=== PATIENT | female | born 1935 | race Caucasian/White ===

== ENCOUNTER 2019-04-16 13:01 | Observation (INO) | payer MEDICARE, OTHER ==
[~2019-04-16] VITALS: Ht 165.1 cm; Wt 86.2 kg
[~2019-04-16 13:01] MED LIST: ASPI81CH PO; ATEN25 PO; ATOR20 PO; CLOP75 PO; CODLIVC PO; DIPATR PO; FENO145 PO; HYDACE5325 PO; Hair, Skin & N1 EACH PO; METF500 PO; RALO60 PO; TRAZ50 PO; Zofran Odt8 MG SL
[2019-04-16] MEDS ORDERED: METF500 PO (13:08)
[2019-04-16 13:59] LABS: BASOPHILS ABSOLUTE AUTO 0.07 K/mm3 (0.00-0.23); BASOPHILS PERCENT AUTO 1 % (0-2); EOSINOPHILS ABSOLUTE AUTO 0.41 K/mm3 (0.00-0.68); EOSINOPHILS PERCENT AUTO 5 % (0-6); Hematocrit 46.1 % (33.0-51.0); Hemoglobin 15.1 g/dL (11.5-16.0); IMMATURE GRAN ABSOLUTE AUTO 0.02 K/mm3 (0.00-0.10); IMMATURE GRAN PERCENT AUTO 0 % (0-1); LYMPHOCYTES ABSOLUTE AUTO 1.67 K/mm3 (0.84-5.20); LYMPHOCYTES PERCENT AUTO 20 % (21-46); MONOCYTES ABSOLUTE AUTO 0.78 K/mm3 (0.16-1.47); MONOCYTES PERCENT AUTO 9 % (4-13); Mean Corpuscular HGB 28.4 pg (26.0-34.0); Mean Corpuscular HGB Conc 32.8 g/dL (31.5-36.5); Mean Corpuscular Volume 87 fL (80-100); Mean Platelet Volume 11.3 fL (9.1-12.4); NEUTROPHILS ABSOLUTE AUTO 5.46 K/mm3 (1.96-9.15); NEUTROPHILS PERCENT AUTO 65 % (41-73); Platelet Count 209 K/mm3 (150-400); RDW Coefficient Variation 14.1 % (11.7-14.2); RDW Standard Deviation 44.6 fL (35.1-46.3); Red Blood Cell Count 5.31 M/mm3 (3.80-5.20); White Blood Cell Count 8.41 K/mm3 (4.00-11.30)
[2019-04-16 14:11] LABS: Source, Urine Clean Catch
[2019-04-16 14:16] LABS: Alanine Aminotransfer (ALT/SGP 32 U/L (12-78); Albumin, Blood 3.7 g/dL (3.4-5.0); Alk Phos 78 U/L (50-136); Anion Gap 5 mmol/L (6-16); Aspartate Aminotrans (AST/SGOT 24 U/L (12-37); Bilirubin, Total 0.4 mg/dL (0.1-1.0); Blood Urea Nitrogen 35 mg/dL (8-24); Bun/Creatinine Ratio 33.3 (12.0-20.0); CO2, Blood 25 mmol/L (21-32); Calcium, Blood 9.6 mg/dL (8.5-10.1); Chloride, Blood 111 mmol/L (98-108); Creatinine, Blood 1.05 mg/dL (0.40-1.00); Globulin, Blood 3.7 g/dL (2.2-4.0); Glomerular Filtration Rate 53 (60-); Glucose, Blood 78 mg/dL (70-99); Potassium, Blood 4.9 mmol/L (3.5-5.5); Sodium, Blood 141 mmol/L (136-145); Total Protein, Blood 7.4 g/dL (6.4-8.2); Troponin I <0.015 ng/mL (0.000-0.040)
[2019-04-16 14:18] LABS: Bilirubin, Urine Neg (Neg); Blood, Urine Neg (Neg); Glucose Qualitative, Urine Neg (Neg); Ketones, Urine Neg (Neg); Leukocyte Esterase, Urine 1+ (Neg); Nitrite, Urine Neg (Neg); Protein, Urine Neg (Neg); Specific Gravity, Urine 1.015 (1.003-1.022); Urobilinogen, Urine NORM (Normal)
[2019-04-16 14:30] LABS: Appearance, Urine Clear (Clear); Color, Urine Yellow (P-Yellow)
[2019-04-16 14:31] LABS: Bacteria Few /hpf; Red Blood Cells, Urine Not Seen /hpf (0-2); Squamous Epithelial Cells Few /hpf (Few)
[2019-04-16] MEDS ORDERED: Glucotrol10 MG PO (15:16)
[2019-04-16] MEDS ORDERED: CELECOXIB200 MG PO (15:16)
[2019-04-17 05:07] LABS: Hemoglobin 13.9 g/dL (11.5-16.0); Mean Corpuscular HGB Conc 32.3 g/dL (31.5-36.5); Mean Corpuscular Volume 87 fL (80-100); Mean Platelet Volume 11.2 fL (9.1-12.4); Platelet Count 181 K/mm3 (150-400); RDW Coefficient Variation 13.9 % (11.7-14.2); RDW Standard Deviation 43.8 fL (35.1-46.3); Red Blood Cell Count 4.96 M/mm3 (3.80-5.20); White Blood Cell Count 6.94 K/mm3 (4.00-11.30)
[2019-04-17 05:36] LABS: Anion Gap 7 mmol/L (6-16); Blood Urea Nitrogen 30 mg/dL (8-24); Bun/Creatinine Ratio 32.4 (12.0-20.0); CO2, Blood 25 mmol/L (21-32); Chloride, Blood 113 mmol/L (98-108); Creatinine, Blood 0.93 mg/dL (0.40-1.00); Glomerular Filtration Rate >60 (60-); Glucose, Blood 117 mg/dL (70-99); Potassium, Blood 4.3 mmol/L (3.5-5.5); Sodium, Blood 145 mmol/L (136-145)
--- NOTE | 2019-04-17 06:01 | NUR ---
WRITER PRODUCER SUMMARY PT A/O X4. PT STATED HER EYES WERE DRY AT THE BEGINNING OF THE SHIFT AND WANTED ARTIFICAL TEARS. ARTIFICAL TEARS WERE PRECRIBED AND LEFT AT BEDSIDE PER MD ORDERS FOR PT'S COMFORT. PT SLEPT WELL THROUGHOUT THE NIGHT. GOT UP A FEW TIMES TO USE THE BATHROOM WITH STANDBY ASSIST. HR IN THE HIGHER 50'S AND 60'S. PT DENIES ANY PAIN AND NAUSEA. WAS COOPERATIVE AND FOLLOWED COMMANDS. VSS AND WILL CONTINTUE TO MONITOR.
--- NOTE | 2019-04-17 09:33 | NUR ---
Spiritual care visit conducted. Patient is sitting on EOB and ready to go home. I provide pastoral halfway house counselor and prayer patient responds well and voices appreciation for the visit.
[2019-04-17] MEDS ORDERED: METO25ER PO (10:13)
[2019-04-17] MEDS ORDERED: XARELTO20 MG PO (10:14)
--- NOTE | 2019-04-17 10:37 | NUR ---
PATIENT D/C'D TO HOME WITH HER SISTER. [facility] TO CALL WITH FOLLOW UP APPT. RX MEDICATION FAXED TO [facility]. VSS THIS AM, PATIENT WAS IN A-FIB AT 62. D/C INSTRUCTIONS AND EDUCATION DISCUSSED WITH PATIENT AND COPY PROVIDED. PATIENT DENIES ANY FURTHER QUESTIONS OR CONCERNS.
== END 2019-04-17 10:42 | disposition home or self-care (01) ==
LOC: ER 13:01 → MEDS 13:02
PROVIDERS: Emergency Medicine; ADMIT Internal Medicine
DX: I48.91 Unspecified atrial fibrillation (principal); N17.9 Acute kidney failure, unspecified; I10 Essential (primary) hypertension; E11.9 Type 2 diabetes mellitus without complications; I25.10 Atherosclerotic heart disease of native coronary artery without angina pectoris; M19.90 Unspecified osteoarthritis, unspecified site; Z74.09 Other reduced mobility; Z86.73 Personal history of transient ischemic attack (TIA), and cerebral infarction without residual deficits; Z91.018 Allergy to other foods; Z88.8 Allergy status to other drugs, medicaments and biological substances; Z79.899 Other long term (current) drug therapy; Z79.84 Long term (current) use of oral hypoglycemic drugs; Z95.5 Presence of coronary angioplasty implant and graft
CPT/HCPCS: 36415; 71046; 76770; 80048; 80053; 81001; 82947; 83880; 84484; 85025; 85027; 87086; 93005; 93010; 93306; 96360; 96361; 99285-25; G0378; J7030

== ENCOUNTER → 2019-09-25 | Outpatient (CLI) | payer MEDICARE, OTHER ==
[~2019-09-25] MED LIST changes: +CELECOXIB200 MG PO; +Glucotrol10 MG PO; +METO25ER PO; +XARELTO20 MG PO
[2019-09-25 17:11] LABS: Microalb/Creat Ratio UR, Rand 27.759 mg/g (0.000-30.000); Microalbumin, Random Urine 32.2 mg/L (0.000-20.000)
== END | disposition home or self-care (01) ==
LOC: LAB 15:30 → LAB SHORT 15:30 → LAB FUT 08-25 08:00
PROVIDERS: Physician Assistant
DX: N18.9 Chronic kidney disease, unspecified (principal)
CPT/HCPCS: 82043; 82570

== ENCOUNTER 2022-09-19 11:04 | Day surgery (SDC) | payer MEDICARE, OTHER ==
[~2022-09-19] VITALS: Ht 152.4 cm; Wt 94.0 kg
[~2022-09-19 11:04] MED LIST changes: +ATENOLOL25 MG PO; +DICLOFENAC SOD100 G1 TOP; +GLIP2.5ER PO; +HYDR1TAB94 PO; +OXYB5 PO; +RYBELSUS3 MG PO; +SOLI5 PO; +XARELTO15 M1 PO
--- NOTE | 2022-09-19 15:44 | NUR ---
PT DRESSED, SITTING IN WC, SON CALLED AND IS ON HIS WAY IN, IV DC'D TIP INTACT, VSS, WILL DC SHORTLY BY WC. DR JIMENEZ IN TO DISCUSS PLAN OF CARE
--- NOTE | 2022-09-19 16:30 | NUR ---
LE - 1610, PT DC'D BY CAL[facility], SON DRIVING PT HOME
== END 2022-09-19 22:41 | disposition home or self-care (01) ==
LOC: MHTC 11:04
DX: E11.51 Type 2 diabetes mellitus with diabetic peripheral angiopathy without gangrene (principal); I70.222 Atherosclerosis of native arteries of extremities with rest pain, left leg; L97.521 Non-pressure chronic ulcer of other part of left foot limited to breakdown of skin; Z79.84 Long term (current) use of oral hypoglycemic drugs; Z79.01 Long term (current) use of anticoagulants
CPT/HCPCS: 36140; 37224; 37228; 37232; 75625; 75716; 75774; 76937; 99152; 99153; C1725; C1760; C1769; C1887; C1894; J1644; J2250; J3010; J7030; J7040; J7050; Q9967

== ENCOUNTER → 2022-12-06 | Outpatient (CLI) | payer MEDICARE, OTHER | END | disposition home or self-care (01) | LOC: LAB SHORT 11:45 → LAB 11:45 | DX: R30.0 Dysuria (principal) | CPT/HCPCS: 87086; 87147 ==

== ENCOUNTER 2023-04-12 23:31 | Emergency (ER) | payer MEDICARE, OTHER ==
[~2023-04-12] VITALS: Ht 152.4 cm; Wt 90.7 kg
[~2023-04-12 23:31] MED LIST changes: -GLIP2.5ER PO; +GLIP5ER PO
[2023-04-13 01:00] LABS: BASOPHILS ABSOLUTE AUTO 0.06 K/mm3 (0.00-0.23); BASOPHILS PERCENT AUTO 1 % (0-2); EOSINOPHILS ABSOLUTE AUTO 0.07 K/mm3 (0.00-0.68); EOSINOPHILS PERCENT AUTO 1 % (0-6); Hematocrit 39.6 % (33.0-51.0); Hemoglobin 13.3 g/dL (11.5-16.0); IMMATURE GRAN ABSOLUTE AUTO 0.04 K/mm3 (0.00-0.10); IMMATURE GRAN PERCENT AUTO 1 % (0-1); LYMPHOCYTES ABSOLUTE AUTO 0.56 K/mm3 (0.84-5.20); LYMPHOCYTES PERCENT AUTO 7 % (21-46); MONOCYTES ABSOLUTE AUTO 1.14 K/mm3 (0.16-1.47); MONOCYTES PERCENT AUTO 14 % (4-13); Mean Corpuscular HGB 28.9 pg (26.0-34.0); Mean Corpuscular HGB Conc 33.6 g/dL (31.5-36.5); Mean Corpuscular Volume 86 fL (80-100); Mean Platelet Volume 10.4 fL (9.1-12.4); NEUTROPHILS ABSOLUTE AUTO 6.08 K/mm3 (1.96-9.15); NEUTROPHILS PERCENT AUTO 77 % (41-73); Platelet Count 180 K/mm3 (150-400); RDW Coefficient Variation 13.2 % (11.7-14.2); White Blood Cell Count 7.95 K/mm3 (4.00-11.30)
[2023-04-13 01:20] LABS: Albumin, Blood 3.3 g/dL (3.4-5.0); Albumin/Globulin Ratio 0.8 (0.8-1.8); Bilirubin, Total 0.6 mg/dL (0.1-1.0); Bun/Creatinine Ratio 25.2 (12.0-20.0); Calcium, Blood 8.8 mg/dL (8.5-10.1); Creatinine, Blood 0.91 mg/dL (0.40-1.00); Potassium, Blood 4.2 mmol/L (3.5-5.5); Total Protein, Blood 7.3 g/dL (6.4-8.2)
[2023-04-13 01:37] LABS: Influenza A, PCR NEGATIVE (NEGATIVE); Influenza B, PCR NEGATIVE (NEGATIVE); Resp Syncytial Virus, PCR NEGATIVE (NEGATIVE)
[2023-04-13 02:10] LABS: SARS-Cov-2 (COVID-19) PCR, MMC POSITIVE (NEGATIVE)
[2023-04-13 07:30] VITALS: BP 154/62
[2023-04-14] MEDS ORDERED: ESTRADIOL42.5 GM VAG (20:29)
[2023-04-14] MEDS ORDERED: TOLTERODINE TART2 MG PO (20:31)
== END 2023-04-13 07:58 | disposition home or self-care (01) ==
LOC: ER 23:31
PROVIDERS: Student in an Organized Health Care Education/Training Program
DX: U07.1 COVID-19 (principal); R51.9 Headache, unspecified; R05.9 Cough, unspecified; R11.10 Vomiting, unspecified; E11.9 Type 2 diabetes mellitus without complications; I10 Essential (primary) hypertension; Z86.73 Personal history of transient ischemic attack (TIA), and cerebral infarction without residual deficits; Z85.3 Personal history of malignant neoplasm of breast; Z95.5 Presence of coronary angioplasty implant and graft; Z88.8 Allergy status to other drugs, medicaments and biological substances; Z79.01 Long term (current) use of anticoagulants; Z79.899 Other long term (current) drug therapy; Z79.84 Long term (current) use of oral hypoglycemic drugs
CPT/HCPCS: 0241U; 71045; 80053; 83690; 85025; 93005; 93010; 96361; 96374; 99285-25; A9270; J0780; J7030

== ENCOUNTER 2023-04-13 19:49 | Inpatient (IN) | payer MEDICARE, OTHER ==
[~2023-04-13] VITALS: Ht 152.4 cm; Wt 90.7 kg
[2023-04-13 21:00] LABS: BASOPHILS ABSOLUTE AUTO 0.06 K/mm3 (0.00-0.23); BASOPHILS PERCENT AUTO 1 % (0-2); EOSINOPHILS ABSOLUTE AUTO 0.02 K/mm3 (0.00-0.68); EOSINOPHILS PERCENT AUTO 0 % (0-6); Hematocrit 40.4 % (33.0-51.0); Hemoglobin 13.4 g/dL (11.5-16.0); IMMATURE GRAN ABSOLUTE AUTO 0.04 K/mm3 (0.00-0.10); IMMATURE GRAN PERCENT AUTO 1 % (0-1); LYMPHOCYTES PERCENT AUTO 12 % (21-46); MONOCYTES ABSOLUTE AUTO 1.37 K/mm3 (0.16-1.47); MONOCYTES PERCENT AUTO 21 % (4-13); Mean Corpuscular HGB 28.9 pg (26.0-34.0); Mean Corpuscular HGB Conc 33.2 g/dL (31.5-36.5); Mean Corpuscular Volume 87 fL (80-100); Mean Platelet Volume 10.6 fL (9.1-12.4); NEUTROPHILS ABSOLUTE AUTO 4.27 K/mm3 (1.96-9.15); NEUTROPHILS PERCENT AUTO 65 % (41-73); Platelet Count 181 K/mm3 (150-400); RDW Coefficient Variation 13.4 % (11.7-14.2); RDW Standard Deviation 42.3 fL (35.1-46.3); Red Blood Cell Count 4.64 M/mm3 (3.80-5.20); White Blood Cell Count 6.56 K/mm3 (4.00-11.30)
[2023-04-13 21:12] LABS: Albumin, Blood 3.4 g/dL (3.4-5.0); Albumin/Globulin Ratio 0.8 (0.8-1.8); Bilirubin, Total 0.4 mg/dL (0.1-1.0); Creatinine, Blood 0.96 mg/dL (0.40-1.00); Potassium, Blood 4.2 mmol/L (3.5-5.5); Total Protein, Blood 7.4 g/dL (6.4-8.2)
[2023-04-13 23:37] LABS: Source, Urine Clean Catch
[2023-04-13 23:57] LABS: Bilirubin, Urine Neg (Neg); Blood, Urine 1+ (Neg); Glucose Qualitative, Urine Neg (Neg); Ketones, Urine 1+ (Neg); Leukocyte Esterase, Urine Neg (Neg); Nitrite, Urine Neg (Neg); Protein, Urine 2+ (Neg); Specific Gravity, Urine 1.015 (1.003-1.022); Urobilinogen, Urine NORM (Normal)
[2023-04-14 00:06] LABS: Appearance, Urine Clear (Clear); Color, Urine Yellow (P-Yellow)
[2023-04-14 00:37] LABS: Bacteria Few /hpf; Red Blood Cells, Urine 0-2 /hpf (0-2); Squamous Epithelial Cells Few /hpf (Few)
[2023-04-14 17:12] VITALS: BP 165/69
[2023-04-14 17:34] LABS: Adenovirus F 40/41 Not Detected (NOT DETECT); Astrovirus Not Detected (NOT DETECT); Campylobacter Sp Not Detected (NOT DETECT); Cryptosporidium Not Detected (NOT DETECT); Cyclospora Cayetanensis Not Detected (NOT DETECT); E. Coli O157 Not Detected (NOT DETECT); Entamoeba Histolytica Not Detected (NOT DETECT); Enteroaggregative E. coli-EAEC Not Detected (NOT DETECT); Enteropathogenic E. coli-EPEC Not Detected (NOT DETECT); Enterotoxigenic E. coli-ETEC Not Detected (NOT DETECT); Giardia Lamblia Not Detected (NOT DETECT); Norovirus GI/GII Not Detected (NOT DETECT); Plesiomonas Shigelloides Not Detected (NOT DETECT); Rotavirus A Not Detected (NOT DETECT); Salmonella Sp Not Detected (NOT DETECT); Sapovirus Not Detected (NOT DETECT); Shiga Toxin-prod E. coli-STEC Not Detected (NOT DETECT); Shigella/Enteroin E. coli-EIEC Not Detected (NOT DETECT); Vibrio Cholerae Not Detected (NOT DETECT); Vibrio Sp Not Detected (NOT DETECT); Yersinia Enterocolitica Not Detected (NOT DETECT)
--- NOTE | 2023-04-14 18:44 | NUR ---
ADMISSION NOTE: PT IS AN 87 YEAR OLD COVID PATIENT THAT WAS TRANSFERRED FROM THE ED AT 1705. SHE WAS ON ROOM AIR, NO SIGNS OF SYMPTOMS OF DISTRESS, TWIN SONS AND BELONGINGS PRESENT. PATIENT ORIENTED TO MEDICAL STAFF AND ROOM. NEW IV ACCESS WAS OBTAINED AND IV FLUIDS STARTED. PT IS IN HER ROOM WITH HER TWO SONS, BED IN LOWEST POSITION, CALL LIGHT WITHIN REACH. PLAN OF CARE ONGOING.
[2023-04-14 19:27] VITALS: BP 165/57
[2023-04-14] MEDS ORDERED: ESTRADIOL42.5 GM VAG (20:29)
[2023-04-14] MEDS ORDERED: TOLTERODINE TART2 MG PO (20:31)
[2023-04-15 01:06] LABS: BASOPHILS ABSOLUTE AUTO 0.04 K/mm3 (0.00-0.23); BASOPHILS PERCENT AUTO 1 % (0-2); EOSINOPHILS ABSOLUTE AUTO 0.01 K/mm3 (0.00-0.68); EOSINOPHILS PERCENT AUTO 0 % (0-6); Hematocrit 38.1 % (33.0-51.0); Hemoglobin 12.5 g/dL (11.5-16.0); IMMATURE GRAN ABSOLUTE AUTO 0.02 K/mm3 (0.00-0.10); IMMATURE GRAN PERCENT AUTO 0 % (0-1); LYMPHOCYTES ABSOLUTE AUTO 1.12 K/mm3 (0.84-5.20); LYMPHOCYTES PERCENT AUTO 22 % (21-46); MONOCYTES ABSOLUTE AUTO 0.96 K/mm3 (0.16-1.47); MONOCYTES PERCENT AUTO 19 % (4-13); Mean Corpuscular HGB 28.5 pg (26.0-34.0); Mean Corpuscular HGB Conc 32.8 g/dL (31.5-36.5); Mean Corpuscular Volume 87 fL (80-100); Mean Platelet Volume 10.6 fL (9.1-12.4); NEUTROPHILS ABSOLUTE AUTO 2.95 K/mm3 (1.96-9.15); NEUTROPHILS PERCENT AUTO 58 % (41-73); Platelet Count 163 K/mm3 (150-400); RDW Coefficient Variation 13.3 % (11.7-14.2); RDW Standard Deviation 42.8 fL (35.1-46.3); Red Blood Cell Count 4.38 M/mm3 (3.80-5.20)
--- NOTE | 2023-04-15 01:12 | NUR ---
ASSUMED CARE OF PT AT 2230. VSS, PLEASENT NO S/S OF DISTRESS DUE TO COVID. LACTIC ACID CRITICAL CALLED IN BY LAB WITH SLIGHT BETTER RESULT, NOT NOTIFIED SINCE HEADING IN RIGHT DIRECTION.
[2023-04-15 02:05] LABS: Magnesium, Blood 1.9 mg/dL (1.6-2.4)
[2023-04-15 02:53] LABS: Albumin, Blood 2.7 g/dL (3.4-5.0); Albumin/Globulin Ratio 0.5 (0.8-1.8); Bilirubin, Total 0.4 mg/dL (0.1-1.0); Bun/Creatinine Ratio 21.5 (12.0-20.0); Creatinine, Blood 0.93 mg/dL (0.40-1.00); Globulin, Blood 5.1 g/dL (2.2-4.0); Phosphorus, Blood 2.8 mg/dL (2.5-4.9); Potassium, Blood 4.2 mmol/L (3.5-5.5); Total Protein, Blood 7.8 g/dL (6.4-8.2)
[2023-04-15 02:54] VITALS: BP 175/57
--- NOTE | 2023-04-15 04:38 | NUR ---
VERY SHARP 87 YEAROLD, ABLE TO MAKE NEEDS KNOWN. STATES SHE DOESNT WANT MORE BLOOD DRAWN AND WILL REFUSE. I WAS ABLE TO DRAW BLOOD FROM EXCITING IV SITE AND GIVE TO LAB. PT HAS NO PAIN JUST WANT TO SLEEP WILL CONT TO MONITOR.
[2023-04-15 08:11] VITALS: BP 171/62
--- NOTE | 2023-04-15 11:56 | NUR ---
TELEPHONE VERBAL FROM DR. STARKS TO ENEIDA LEONE AT 250ML/HR.
[2023-04-15 16:11] VITALS: BP 158/62
--- NOTE | 2023-04-15 17:02 | NUR ---
1700- RN CALLED DR. STARKS AND INFORMED HIM PT HAS BEEN REFUSING HER CHEM BG CHECKS AND INSULIN ACHS AL DAY. DOES NOT WANT TO DC INSULIN ORDERS OR CHEM BG ORDER.
--- NOTE | 2023-04-15 18:46 | NUR ---
SUMMARY- NO ACUTE EVENTS THIS SHIFT. AAOX4. CALM AND COOPERATIVE. X2 ASSIST.
[2023-04-15 21:09] VITALS: BP 155/60
[2023-04-16 02:03] VITALS: BP 168/72
--- NOTE | 2023-04-16 04:53 | NUR ---
SHIFT SUMMARY PT A&O X4, COOPERATIVE BUT IRRITABLE ABOUT CARE. REFUSED TO HAVE HER BLOOD GLUCOSE DRAWN OR TO RECEIVE INSULIN DURING THE SHIFT. IS AWARE. CURRENTLY ON ENHANCED PRECAUTIONS DUE TO BEING COVID POSITIVE. NO ACUTE EVENTS OVERNIGHT. PT IS CURRENTLY INCONTINENT WITH AN ATTENDS IN PLACE. BED KEPT IN THE LOWEST POSITION WITH CALL LIGHT IN REACH.
[2023-04-16 08:04] VITALS: BP 175/61
[2023-04-16 08:22] LABS: BASOPHILS ABSOLUTE AUTO 0.02 K/mm3 (0.00-0.23); BASOPHILS PERCENT AUTO 1 % (0-2); EOSINOPHILS ABSOLUTE AUTO 0.05 K/mm3 (0.00-0.68); EOSINOPHILS PERCENT AUTO 1 % (0-6); Hematocrit 39.8 % (33.0-51.0); Hemoglobin 13.2 g/dL (11.5-16.0); IMMATURE GRAN ABSOLUTE AUTO 0.01 K/mm3 (0.00-0.10); IMMATURE GRAN PERCENT AUTO 0 % (0-1); LYMPHOCYTES PERCENT AUTO 28 % (21-46); MONOCYTES ABSOLUTE AUTO 0.66 K/mm3 (0.16-1.47); MONOCYTES PERCENT AUTO 15 % (4-13); Mean Corpuscular HGB 28.3 pg (26.0-34.0); Mean Corpuscular HGB Conc 33.2 g/dL (31.5-36.5); Mean Corpuscular Volume 85 fL (80-100); Mean Platelet Volume 10.7 fL (9.1-12.4); NEUTROPHILS ABSOLUTE AUTO 2.36 K/mm3 (1.96-9.15); NEUTROPHILS PERCENT AUTO 55 % (41-73); Platelet Count 157 K/mm3 (150-400); RDW Coefficient Variation 13.5 % (11.7-14.2); RDW Standard Deviation 42.3 fL (35.1-46.3); Red Blood Cell Count 4.66 M/mm3 (3.80-5.20)
[2023-04-16 08:41] LABS: Bun/Creatinine Ratio 17.4 (12.0-20.0); Calcium, Blood 8.3 mg/dL (8.5-10.1); Creatinine, Blood 0.92 mg/dL (0.40-1.00); Potassium, Blood 4.1 mmol/L (3.5-5.5)
--- NOTE | 2023-04-16 16:29 | NUR ---
TELEPHONE VERBAL FROM DR. STARKS TO PLACE ORDER FOR TYLENOL 650MG Q4 HRS; NOT TO EXCEED 3200MG IN 24 HRS, DC LOVENOX ORDER, AND PLACE ORDER FOR XARELTO 15MG DAILY.
[2023-04-16 16:44] VITALS: BP 130/51
--- NOTE | 2023-04-16 18:18 | NUR ---
SUMMARY- NO ACUTE EVENTS THIS SHIFT. PT HAS A PRODUCTIVE COUGH STILL. PT GOT OOB TODAY AND WALKED TO THE BSC/RECLINER W/WALKER AND X1 ASSIST. AAOX3.
[2023-04-17 02:52] VITALS: BP 169/64
--- NOTE | 2023-04-17 04:37 | NUR ---
SHIFT SUMMARY PT IS A&O4, SB TO THE BR CONTINENT/INCONTINENT ATTENDS IN PLACE, RA, VSS, NO COMPLAINTS OF PAIN OVERNIGHT OR ACUTE EVENTS, CONTINUE POC
[2023-04-17 08:00] VITALS: BP 157/60
[2023-04-17 15:38] VITALS: BP 162/70
--- NOTE | 2023-04-17 18:20 | NUR ---
DAYSHIFT SUMMARY Patient alert & oriented x3, no acute changes to patient status. COVID pending, awaiting SNF placement. Pt OOB for meals. Worked with therapy today. CBGs, WNL, no insulin given. PO diabetic medications resumed. Vitals stable. Will continue plan of care.
[2023-04-17 20:01] VITALS: BP 149/62
[2023-04-18 05:36] VITALS: BP 182/73
--- NOTE | 2023-04-18 05:54 | NUR ---
SHIFT SUMMARY A/O PT UP IN CHAIR AND ASSISTED TO BATHROOM USING FWW, DID VERY WELL PT WAS STABLE USING WALKER. ASSISTED PT TO BED FOR THE EVENING. PT WET IN THE AM, CALL BUTTON DIDNT SEEM TO WORK TOO WELL. CALL BUTTON WORKING NOW. NO C/O PAIN NO DISTRESS.
[2023-04-18 07:32] VITALS: BP 163/67
[2023-04-18] MEDS ORDERED: METF500 PO (15:29)
[2023-04-18] MEDS ORDERED: ONDA4ODT SL (15:30)
--- NOTE | 2023-04-18 16:55 | NUR ---
DISCHARGE NOTE: DISCHARGE PAPERWORK DISCUSSED WITH PATIENT NOTIFIED OF FOLLOW UP APPT THAT IS SCHEDULED WITH PCP. IV REMOVED, BELONGINGS COLLECTED, AND CONTACTED PATIENT'S SONS TO COME PICK HER UP. PT DISCHARGED VIA WHEELCHAIR TO SON'S VEHICLE BY JACOB.
== END 2023-04-18 16:55 | disposition home health service (06) | DRG 178 ==
LOC: ER 19:49 → MEDS 04-14 15:13
PROVIDERS: Emergency Medicine; Internal Medicine; ADMIT Family Medicine
PROC: 3E0234Z Introduction of Serum, Toxoid and Vaccine into Muscle, Percutaneous Approach (ICD-10-PCS; principal; 2023-04-14)
PROC: 8E0ZXY6 Isolation (ICD-10-PCS; 2023-04-14)
DX: U07.1 COVID-19 (principal); E87.1 Hypo-osmolality and hyponatremia; E87.20 Acidosis, unspecified; E11.9 Type 2 diabetes mellitus without complications; I25.10 Atherosclerotic heart disease of native coronary artery without angina pectoris; I10 Essential (primary) hypertension; E78.5 Hyperlipidemia, unspecified; M19.90 Unspecified osteoarthritis, unspecified site; Z86.73 Personal history of transient ischemic attack (TIA), and cerebral infarction without residual deficits; Z85.3 Personal history of malignant neoplasm of breast; Z85.41 Personal history of malignant neoplasm of cervix uteri; Z90.49 Acquired absence of other specified parts of digestive tract; Z90.710 Acquired absence of both cervix and uterus; Z98.890 Other specified postprocedural states; Z95.5 Presence of coronary angioplasty implant and graft; Z90.13 Acquired absence of bilateral breasts and nipples; Z88.8 Allergy status to other drugs, medicaments and biological substances; Z91.018 Allergy to other foods; Z91.010 Allergy to peanuts; Z79.84 Long term (current) use of oral hypoglycemic drugs; Z79.01 Long term (current) use of anticoagulants; Z79.899 Other long term (current) drug therapy; Z88.1 Allergy status to other antibiotic agents
CPT/HCPCS: 36415; 80048; 80053; 81001; 82947; 83605; 83735; 84100; 85025; 87040; 87507; 93005; 93010; 96360; 97110; 97161; 97166; 97530; 97535; 99285-25; A9270; J7030; Q2036

== ENCOUNTER 2023-10-17 02:18 | Day surgery (SDC) | payer MEDICARE, OTHER ==
[~2023-10-17 02:18] MED LIST changes: +ESTRADIOL42.5 GM VAG; +ONDA4ODT SL; +TOLTERODINE TART2 MG PO
[2023-10-17] MEDS ORDERED: Lidocaine HCl 4% Cream 5 GM ONE (10:07)
== END 2023-10-17 23:16 | disposition home or self-care (01) ==
LOC: WOUND 02:18
PROC: 0JBQ0ZZ Excision of Right Foot Subcutaneous Tissue and Fascia, Open Approach (ICD-10-PCS; principal; 2023-10-17)
DX: E11.51 Type 2 diabetes mellitus with diabetic peripheral angiopathy without gangrene (principal); L98.492 Non-pressure chronic ulcer of skin of other sites with fat layer exposed; I70.25 Atherosclerosis of native arteries of other extremities with ulceration
CPT/HCPCS: A9270

== ENCOUNTER 2023-10-31 04:43 | Day surgery (SDC) | payer MEDICARE, OTHER ==
[2023-10-31] MEDS ORDERED: Lidocaine HCl 4% Cream 5 GM ONE (11:27)
== END 2023-10-31 23:07 | disposition home or self-care (01) ==
LOC: WOUND 04:43
DX: E11.621 Type 2 diabetes mellitus with foot ulcer (principal); L97.512 Non-pressure chronic ulcer of other part of right foot with fat layer exposed; I70.223 Atherosclerosis of native arteries of extremities with rest pain, bilateral legs
CPT/HCPCS: A9270

== ENCOUNTER 2023-11-06 03:14 | Day surgery (SDC) | payer MEDICARE, OTHER ==
[2023-11-06] MEDS ORDERED: Lidocaine HCl 4% Cream 5 GM ONE (10:46)
== END 2023-11-06 22:49 | disposition home or self-care (01) ==
LOC: WOUND 03:14
DX: E11.621 Type 2 diabetes mellitus with foot ulcer (principal); L97.512 Non-pressure chronic ulcer of other part of right foot with fat layer exposed; E11.51 Type 2 diabetes mellitus with diabetic peripheral angiopathy without gangrene; I70.223 Atherosclerosis of native arteries of extremities with rest pain, bilateral legs
CPT/HCPCS: A9270

== ENCOUNTER 2023-11-13 04:38 | Day surgery (SDC) | payer MEDICARE, OTHER ==
[2023-11-13] MEDS ORDERED: Lidocaine HCl 4% Cream 5 GM ONE (11:18)
== END 2023-11-13 23:19 | disposition home or self-care (01) ==
LOC: WOUND 04:38
DX: I70.223 Atherosclerosis of native arteries of extremities with rest pain, bilateral legs (principal); E11.621 Type 2 diabetes mellitus with foot ulcer; L97.512 Non-pressure chronic ulcer of other part of right foot with fat layer exposed
CPT/HCPCS: A9270